=== PATIENT | male | born 1965 | race Two or more races ===

== ENCOUNTER 2023-12-02 05:43 | Inpatient (IN) | payer BC, OTHER ==
[~2023-12-02] VITALS: Ht 175.3 cm; Wt 87.0 kg
[2023-12-02 06:52] VITALS: PULSE 93; RESP 20; O2SAT 98
[2023-12-02 07:40] VITALS: PULSE 88; RESP 18; O2SAT 98
[2023-12-02] MEDS: METOCLOPRAMIDE HCL 5MG/ml INJ 2ml VIAL IV ONE (08:15)
[2023-12-02] MEDS: SODIUM CHLORIDE 0.9% 1,000 ML IV ONE (08:15)
[2023-12-02] MEDS: HYDROmorphone HCL 2 MG/ML VL/or syr IV ONE ×2 (08:16→13:08)
[2023-12-02 08:30] LABS: Urine Bacteria FEW /hpf (None Seen); Urine Blood Negative /uL (Negative); Urine Clarity Clear (Clear); Urine Color Light-Yellow (Yellow); Urine Protein, UAD TRACE (Negative); Urine Specific Gravity 1.014 (1.001-1.035); Urine Urobilinogen Normal (Negative); Urine WBC <1 /hpf (0 - 3); Urine pH 6.5 (5.0-9.0)
[2023-12-02 09:08] LABS: Basophils # (auto) 0.1 10 ^3/uL (0-0.2); Basophils % (auto) 0.6 % (0.0-2.0); Eosinophils # (auto) 0.3 10 ^3/uL (0-0.8); Eosinophils % (auto) 2.2 % (0.0-7.0); Hematocrit 32.4 % (41.0-53.0); Hemoglobin 10.8 g/dL (13.5-17.5); Lymphocytes # (auto) 1.4 10 ^3/uL (0.4-5.4); Lymphocytes % (auto) 12.3 % (10.0-50.0); Mean Corpuscular Hemoglobin 32.1 pg (28.0-32.0); Mean Corpuscular Hgb Conc. 33.3 g/dL (32.0-36.0); Mean Corpuscular Volume 96.4 fL (80.0-100.0); Monocytes # (auto) 0.9 10 ^3/uL (0-1.3); Monocytes % (auto) 8.3 % (0.0-12.0); Neutrophils # (auto) 8.7 10 ^3/uL (1.6-8.6); Neutrophils % (auto) 76.6 % (37.0-80.0); Red Blood Cells 3.37 10^6/uL (4.5-5.90); White Blood Cell 11.4 10^3/uL (4.4-10.8)
[2023-12-02 09:23] LABS: INR 0.89 (0.9-1.15); Partial Thromboplastin Time 27.1 SEC (24.5-34.5); Prothrombin Time 9.5 sec (9.3-11.8)
[2023-12-02 09:27] LABS: Alanine Aminotransferase 16 U/L (7-40); Albumin 3.7 g/dL (3.2-4.8); Alkaline Phosphatase 72 U/L (46-116); Anion Gap 7 (5-15); Aspartate Aminotransferase 13 U/L (13-40); BUN/Creatinine Ratio 11.7 (10.0-20.0); Blood Urea Nitrogen 11 mg/dL (9-23); Calcium 8.9 mg/dL (8.7-10.4); Carbon Dioxide 23 mmol/L (20-30); Chloride 109 mmol/L (98-107); Glucose 102 mg/dL (74-106); Lipase 34 U/L (12-53); Magnesium 2.1 mg/dL (1.6-2.6); Potassium 4.2 mmol/L (3.5-5.1); Sodium 139 mmol/L (136-145)
[2023-12-02 09:28] LABS: Bilirubin, Total 0.7 mg/dL (0.2-1.0); Total Protein 6.3 g/dL (5.7-8.2)
[2023-12-02] MEDS ORDERED: DOCUSATE SOD 100 MG CAP PO PRN (13:00)
[2023-12-02] MEDS ORDERED: SODIUM CHLORIDE 0.9% 1,000 ML IV SCH (13:00)
[2023-12-02] MEDS: D5W/SOD CHL 0.45% 1,000 ML IV ONE (13:08)
[2023-12-02] MEDS ORDERED: MORPHINE SULFATE INJ 2 MG/ml SYRG IV PRN (14:15)
[2023-12-02] MEDS ORDERED: NITROGLYCERIN 0.4 MG SL TAB SL PRN (14:15)
[2023-12-02 16:43] VITALS: PULSE 76; RESP 18; O2SAT 100
[2023-12-02 17:00] VITALS: BP 132/51; PULSE 75; RESP 18; TEMP 97.2; O2SAT 100
[2023-12-02] MEDS: MORPHINE SULFATE INJ 2 MG/ml SYRG IV PRN (17:41)
[2023-12-02] MEDS: ONDANSETRON HCL 4 MG/2 ML VIAL IV PRN (17:41)
[2023-12-02] MEDS ORDERED: AMLO1TAB22 PO (17:45)
[2023-12-02] MEDS ORDERED: CEPH500C PO (17:45)
[2023-12-02] MEDS ORDERED: LOSA-535 PO (17:47)
[2023-12-02 20:00] VITALS: PULSE 64; RESP 17; O2SAT 97
[2023-12-02 21:00] VITALS: BP 132/78; PULSE 64; RESP 17; TEMP 99.3; O2SAT 97
[2023-12-03] VITALS (8 sets, daily range): BP systolic 125–144; BP diastolic 65–93; PULSE 63–99; RESP 14–18; TEMP 97.5–98.4; O2SAT 94–100
[2023-12-03 06:27] LABS: Basophils # (auto) 0.1 10 ^3/uL (0-0.2); Basophils % (auto) 0.8 % (0.0-2.0); Eosinophils # (auto) 0.3 10 ^3/uL (0-0.8); Eosinophils % (auto) 4.1 % (0.0-7.0); Hematocrit 32.5 % (41.0-53.0); Hemoglobin 10.9 g/dL (13.5-17.5); Lymphocytes # (auto) 2.1 10 ^3/uL (0.4-5.4); Lymphocytes % (auto) 25.2 % (10.0-50.0); Mean Corpuscular Hemoglobin 32.5 pg (28.0-32.0); Mean Corpuscular Hgb Conc. 33.6 g/dL (32.0-36.0); Mean Corpuscular Volume 96.5 fL (80.0-100.0); Monocytes # (auto) 0.7 10 ^3/uL (0-1.3); Neutrophils % (auto) 60.9 % (37.0-80.0); Nucleated Red Blood Cells % 0.1 %; Red Blood Cells 3.36 10^6/uL (4.5-5.90); Red Cell Distribution Width 12.9 % (11.8-14.3); White Blood Cell 8.3 10^3/uL (4.4-10.8)
[2023-12-03 06:44] LABS: Alanine Aminotransferase 14 U/L (7-40); Alkaline Phosphatase 76 U/L (46-116); Anion Gap 9 (5-15); Aspartate Aminotransferase 11 U/L (13-40); BUN/Creatinine Ratio 9.7 (10.0-20.0); Blood Urea Nitrogen 6 mg/dL (9-23); Calcium 9.1 mg/dL (8.7-10.4); Carbon Dioxide 24 mmol/L (20-30); Chloride 107 mmol/L (98-107); Glucose 86 mg/dL (74-106); Potassium 3.7 mmol/L (3.5-5.1); Sodium 140 mmol/L (136-145)
[2023-12-03 06:45] LABS: Albumin 3.6 g/dL (3.2-4.8); Bilirubin, Total 1.2 mg/dL (0.2-1.0)
[2023-12-03] MEDS: ceFAZolin 2 GM/D5W50ml 50 ML IV ONE (08:35)
[2023-12-03] MEDS: LIDOCAINE 1% HCL (LOCAL ANESTH.) INJ 20ML MDV ONE (08:58)
[2023-12-03] MEDS ORDERED: HYDROmorphone HCL 2 MG/ML VL/or syr ONE (09:04)
[2023-12-03] MEDS ORDERED: MIDAZOLAM HCL 2MG/2ML 2ml VIAL (1mg/ml) ONE (09:04)
[2023-12-03] MEDS ORDERED: fentaNYL CITRATE 100 MCG/2 ML VL ONE ×2 (09:04→10:25)
[2023-12-03] MEDS ORDERED: KETAMINE 50mg/ML 1ml syringe ONE (09:04)
[2023-12-03] MEDS ORDERED: PROPOFOL 10 MG/ML 20 ML IV ONE (09:05)
[2023-12-03] MEDS ORDERED: KETOROLAC TROMETH 30 MG/ML 1ML VIAL ONE (09:05)
[2023-12-03] MEDS ORDERED: LIDOCAINE HCL 100 MG/5ML (2%) SYRG INJ IV ONE (09:05)
[2023-12-03] MEDS ORDERED: ONDANSETRON HCL 4 MG/2 ML VIAL ONE (09:05)
[2023-12-03] MEDS ORDERED: GLYCOPYRROLATE 0.2 MG/ML 1ML VIAL ONE (09:05)
[2023-12-03] MEDS ORDERED: DexAMETHasone SOD PHOS 10MG/1ML VIAL INJ ONE (09:05)
[2023-12-03] MEDS: LIDOCAINE 1% HCL (LOCAL ANESTH.) INJ 20ML MDV IJ ONE (09:50)
[2023-12-03] MEDS ORDERED: SUGAMMADEX 200mg/2ml Vial (100MG/ML) IV ONE (09:52)
[2023-12-03] MEDS ORDERED: MEPERIDINE HCL (25 MG/ML) 1ML VIAL ONE (11:07)
[2023-12-03] MEDS ORDERED: HYDROmorphone HCL 2 MG/ML VL/or syr IV PRN (11:30)
[2023-12-03] MEDS: ONDANSETRON HCL 4 MG/2 ML VIAL IV ONE (12:37)
[2023-12-03] MEDS: D5W/ SOD CHL 0.9%/KCL 20MEQ 1,000 ML IV SCH (14:16)
[2023-12-03] MEDS: ACETAMINOPHEN/CODEINE#3 (300/30mg) TAB PO PRN (14:16)
[2023-12-03] MEDS: ceFAZolin 2 GM/D5W50ml 50 ML IV SCH (16:54)
[2023-12-03] MEDS ORDERED: HYDROcodone-ACET 10/325MG TAB PO PRN (18:30)
[2023-12-03] MEDS: HYDROmorphone HCL 2 MG/ML VL/or syr IV PRN (23:56)
[2023-12-04 01:00] VITALS: BP 133/81; PULSE 71; RESP 17; TEMP 97.3; O2SAT 94
[2023-12-04 05:00] VITALS: BP 132/76; PULSE 65; RESP 17; TEMP 97.6; O2SAT 97
[2023-12-04 06:31] LABS: Basophils # (auto) 0 10 ^3/uL (0-0.2); Basophils % (auto) 0.1 % (0.0-2.0); Eosinophils # (auto) 0 10 ^3/uL (0-0.8); Eosinophils % (auto) 0.1 % (0.0-7.0); Hematocrit 29.1 % (41.0-53.0); Lymphocytes # (auto) 1.4 10 ^3/uL (0.4-5.4); Mean Corpuscular Hemoglobin 33.1 pg (28.0-32.0); Mean Corpuscular Hgb Conc. 34.4 g/dL (32.0-36.0); Mean Corpuscular Volume 96.4 fL (80.0-100.0); Monocytes % (auto) 8.3 % (0.0-12.0); Neutrophils # (auto) 9.1 10 ^3/uL (1.6-8.6); Neutrophils % (auto) 79.5 % (37.0-80.0); Red Blood Cells 3.02 10^6/uL (4.5-5.90); Red Cell Distribution Width 13.3 % (11.8-14.3); White Blood Cell 11.5 10^3/uL (4.4-10.8)
[2023-12-04 06:47] LABS: Alanine Aminotransferase 13 U/L (7-40); Albumin 3.4 g/dL (3.2-4.8); Alkaline Phosphatase 71 U/L (46-116); Anion Gap 5 (5-15); Aspartate Aminotransferase 9 U/L (13-40); BUN/Creatinine Ratio 9.8 (10.0-20.0); Bilirubin, Total 0.7 mg/dL (0.2-1.0); Blood Urea Nitrogen 6 mg/dL (9-23); Calcium 8.7 mg/dL (8.5-10.1); Carbon Dioxide 24 mmol/L (20-30); Chloride 108 mmol/L (98-107); Glucose 104 mg/dL (74-106); Potassium 3.7 mmol/L (3.5-5.1); Sodium 137 mmol/L (136-145); Total Protein 5.6 g/dL (5.7-8.2)
[2023-12-04 09:00] VITALS: BP 125/68; PULSE 65; RESP 18; TEMP 97.5; O2SAT 98
[2023-12-04] MEDS: amLODIPine BESYLATE 5 MG TAB PO SCH (11:30)
[2023-12-04] MEDS ORDERED: CIPR-173 PO (11:54)
[2023-12-04] MEDS ORDERED: METR-344 PO (11:54)
[2023-12-04 13:00] VITALS: BP 150/79; PULSE 70; RESP 16; TEMP 97.8; O2SAT 98
== END 2023-12-04 16:00 | disposition home or self-care (01) | DRG 395 ==
LOC: ER 05:43 → OVERFLOW 14:08 → EAST 16:29
PROVIDERS: ADMIT Internal Medicine; ATTEND Internal Medicine
DX: K42.0 Umbilical hernia with obstruction, without gangrene (principal); K43.6 Other and unspecified ventral hernia with obstruction, without gangrene; D64.9 Anemia, unspecified; D72.829 Elevated white blood cell count, unspecified; S30.0XXA Contusion of lower back and pelvis, initial encounter; I10 Essential (primary) hypertension; K57.30 Diverticulosis of large intestine without perforation or abscess without bleeding; N28.89 Other specified disorders of kidney and ureter; Z98.84 Bariatric surgery status; Z85.72 Personal history of non-Hodgkin lymphomas; Z87.891 Personal history of nicotine dependence; X58.XXXA Exposure to other specified factors, initial encounter; Y93.9 Activity, unspecified; Y92.89 Other specified places as the place of occurrence of the external cause; Y99.8 Other external cause status
CPT/HCPCS: 36415; 71046; 74177; 80053; 81001; 83690; 83735; 85025; 85610; 85730; 86850; 86900; 86901; 93005; G0378; J1100; J1885; J2001; J2250; J2405; J2704